=== PATIENT | female | born 1945 | race Caucasian/White ===

== ENCOUNTER 2020-03-18 10:19 | Inpatient (IN) ==
[2020-03-18] MEDS ORDERED: IOPAMIDOL 100 ML BOTTLE IV ONE (10:20)
[2020-03-18] MEDS ORDERED: 0.9 % SODIUM CHLORIDE 1,000 ML IV ONE (10:45)
[2020-03-18] MEDS ORDERED: PANTOPRAZOLE 40 MG VIAL IV ONE (10:45)
--- NOTE | 2020-03-18 10:53 | Emergency Department Note ---
GI Bleed HPI General Chief complaint: Rectal Bleed Stated complaint: abdominal pain bloody diarrhea Time Seen by Provider: 03/18/20 10:24 Source: patient Mode of arrival: ambulatory Limitations: no limitations History of Present Illness HPI Narrative: Narrative: 74-year-old female patient presents emergency departme nt chief complaint of abdominal pain, bloating, and rectal bleeding. Patient mentions she is lactose intolerant and went to [employer] and grabbed a drink. This drink did have some cream in it. Soon afterward she developed bloating, later that evening she developed profuse diarrhea. She began to pass what appeared to be blood around 9 PM last night. She had several episodes of bloody diarrhea up until this morning. She mentions that the abdominal pain initially was a sharp, stabbing pain starting in the epigastric area that extended downward. This is now decreased to mild cramping to lower quadrants. ROS: Denies systemic illness, fever, sweats, chills. Denies headaches, tinnitus, or vision changes. Denies runny nose, sinus congestion, or cough. Denies shortness of breath. Denies retrosternal chest pain or palpitations. Denies nausea or vomiting. Denies dysuria, hematuria, urinary frequency, or urinary urgency. Denies generalized or focal weakness. Related Data Home Medications Medication Instructions Recorded Confirmed cholecalciferol (vitamin D3) 25 25 mcg PO QDAY 10/30/19 03/18/20 mcg (1,000 unit) capsule Previous Rx's Medication Instructions Recorded levothyroxine 100 mcg tablet 100 mcg PO QDAY #30 tab 01/15/20 clorazepate dipotassium 7.5 mg See Rx Instructions .ROUTE 02/10/20 tablet .COMPLEX #60 unknown measurement unit code: tablet lisinopril 10 mg tablet See Rx Instructions .ROUTE 02/23/20 .COMPLEX #30 tablet [employer] Contour Medicare/Aid See Rx Instructions .ROUTE 03/08/20 .COMPLEX #50 each Allergies Allergy/AdvReac Type Severity Reaction Status Date / Time metformin Allergy Mild Rash Verified 03/18/20 15:45 cephalexin [From Keflex] Allergy Unknown Unknown Verified 03/09/20 11:09 Agvdthy-Ipb-Odr Reductase AdvReac Intermediate muscle Verified 03/18/20 15:45 Inhibitor aches Amoxicillin [From Augmentin] AdvReac Mild Anxiety Verified 03/18/20 15:45 clavulanic acid AdvReac Mild Anxiety Verified 03/18/20 15:45 [From Augmentin] levofloxacin [From Levaquin] AdvReac Mild dizzy, Verified 03/18/20 15:45 anxious metronidazole AdvReac Mild duenas, Verified 03/18/20 15:45 burning, throat pain Review of Systems ROS ROS Narrative: Narrative: All systems ED: reviewed and negative except as stated. [facility] Narrative Patient History Narrative: Narrative: Medical/Surgical/Family History All Active Problems (Updated 03/18/20 @ 14:19 by Hayden Pedersen PA-C) Acute lower gastrointestinal bleeding (Acute) Abdominal pain (Acute) Fatigue (Acute) Actinic keratosis (Acute) Hair thinning (Acute) Abnormal stool test (Acute ~03/2019) Chronic bronchitis (Chronic) Degenerative joint disease (Chronic) History of tobacco use (Chronic) Anxiety disorder (Chronic) Chronic pain (Chronic) Radiculopathy of cervical region (Chronic) Myofascial pain (Chronic) Right shoulder pain (Chronic) Hx of bone density study (Chronic 03/12/18) Encounter for Papanicolaou smear for cervical cancer screening (Chronic 01/30/12) Herniated cervical disc (Chronic) Neck pain (Chronic) Diabetes mellitus type 2, diet-controlled (Chronic ~01/2010) History of lump of right breast (Chronic) Hypothyroidism (Chronic) Hyperlipidemia (Chronic) Tendinitis of right shoulder (Chronic) Anxiety (Chronic) Hypertension (Chronic) Back pain, lumbosacral (Chronic) Eczema (Chronic) Allergic rhinitis (Chronic) Pain, joint, shoulder, left (Chronic) Muscle spasms of neck (Chronic) Carpal tunnel syndrome of right wrist (Chronic) DDD (degenerative disc disease), cervical (Chronic) Spinal stenosis, cervical region (Chronic) Coronary arteriosclerosis (Chronic) Hx of smoking (Chronic) Atrophic vaginitis (Chronic) Sinusitis, acute (Chronic) Dizziness (Chronic) Headache (Chronic) Atherosclerosis of both carotid arteries (Chronic) Bronchitis (Chronic) Medical History Actinic keratosis (Acute) Allergic rhinitis (Chronic) Anxiety (Chronic) Anxiety disorder (Chronic) Atherosclerosis of both carotid arteries (Chronic) Atrophic vaginitis (Chronic) Back pain, lumbosacral (Chronic) Bronchitis (Chronic) Carpal tunnel syndrome of right wrist (Chronic) Chronic bronchitis (Chronic) Chronic pain (Chronic) Coronary arteriosclerosis (Chronic) DDD (degenerative disc disease), cervical (Chronic) Degenerative joint disease (Chronic) Diabetes mellitus type 2, diet-controlled (Chronic ~01/2010) Dizziness (Chronic) Eczema (Chronic) Encounter for Papanicolaou smear for cervical cancer screening (Chronic 01/30/12) Neg, vaginal Fatigue (Acute) Hair thinning (Acute) Headache (Chronic) Herniated cervical disc (Chronic) History of lump of right breast (Chronic) at age 19 History of tobacco use (Chronic) Hx of bone density study (Chronic 03/12/18) [facility]- normal Hx of smoking (Chronic) Hyperlipidemia (Chronic) Hypertension (Chronic) Hypothyroidism (Chronic) Muscle spasms of neck (Chronic) Myofascial pain (Chronic) Neck pain (Chronic) Pain, joint, shoulder, left (Chronic) Radiculopathy of cervical region (Chronic) Right shoulder pain (Chronic) Sinusitis, acute (Chronic) Spinal stenosis, cervical region (Chronic) Tendinitis of right shoulder (Chronic) Type 2 diabetes mellitus (Inactive) Surgical History History of cataract surgery (Chronic ~2017) History of hysterectomy (Chronic) at age 26 for bleeding, has ovaries History of surgery (Chronic) KATIE #2 w/cath, w/sed 06/02/2019 Major Bursa Inj. Rt. Shoulder w/sed 06/02/2019 KATIE #1 w/cath, w/sed 05/12/2019 KATIE #2 w/cath, w/sed 04/11/2017 Trigger Point injections w/see 04/11/2017 Trigger Point Injection 1-2 w/sed 03/06/17 KATIE #1 w/cath, w/sed 03/06/17 Hx of colonoscopy (Chronic 04/06/15) Dr Esposito; devin polyp, diverticulosis, repeat 7 years Family History Family/Other Pancreatic cancer Aunt unknown if maternal or paternal Sister Pancreatic cancer at age 54 Father Brain cancer at age 70 Brother Cancer at age 45 Family/Other Ovarian cancer unknown specific family member and if maternal or paternal Social History Smoking Status: Former smoker Substance Use: does not use Exam Narrative Narrative: Narrative: General Limitations: no limitations General appearance: Present other (Well-developed, well-nourished, 74-year-old female patient laying semirecumbent on the emergency room gurney very anxious but in no acute respiratory distress. She is afebrile, mildly tachycardic with a heart rate of 105, other vital signs are normal.) Head Head: Present normocephalic Eye Eye: Present normal appearance, PERRL and EOMI; Absent scleral icterus and conjunctival injection ENT ENT: Present normal oropharynx and mucous membranes moist Neck Neck: Present trachea midline; Absent lymphadenopathy and thyromegaly Chest Chest: Present symmetric chest wall rise Respiratory Respiratory: Present normal lung sounds bilaterally; Absent respiratory distr ess, wheezes, stridor, accessory muscle use and prolonged expiratory phase Cardiovascular Cardiovascular: Present regular rate and normal rhythm; Absent systolic murmur and diastolic murmur Adbominal Abdominal: Present soft, tenderness and normal bowel sounds; Absent distention, guarding, rebound, rigidity, organomegaly and mass Expanded Abdominal Abdominal Tenderness: Present RLQ, LLQ and mild Rectal Rectal: Present normal inspection, normal rectal tone and heme (+) stool; Absent black stool, bloody stool, fecal impaction, hemorrhoids, mass and tenderness Extremities Extremities: Present normal inspection, full ROM and normal capillary refill; Absent pedal edema Back Back: Present normal inspection and full ROM Neurological Neurological: Present alert and oriented X3 Psychiatric Psychiatric: Present normal affect and anxious Skin Skin: Present warm (WNL), dry and normal color Course Course Course Narrative: The differential diagnosis of lower gastrointestinal bleeding in the adult patient includes the following conditions: Diverticulosis, hemo rrhoids, angiodysplasia, ischemia, infections, IBS, ulceration, bowel carcinoma, or polyps. Patient has known history of lactose intolerance and drink something with cream in it. This set off her cascade of symptoms. She does have guaiac positive stool on exam today. I am going to order some screening laboratory studies. I am also going to get an abdominal/pelvic CT scan with contrast. Patient was given Protonix 80 mg IVP. Patient was also given normal saline 1000 mL bolus. Reevaluation(s) Reevaluation #1: A review the patient's diagnostics show the following: CBC WBC 12.7, all others normal limits. Lactic acid 2.3. CMP pending. Contrast- enhanced CT scan of the abdomen/pelvis shows marked concentric wall thickening of the entire descending and proximal sigmoid colon with inflammation of the pericolonic fat infiltrative colonic pathology differential diagnosis includes ischemic colitis versus infectious colitis versus inflammatory bowel disease particular ulcerative colitis. Upon reevaluation patient is resting comfortably on the emergency room [facility]. After reviewing all the data I reached out to on- call GI specialist (Dr. Arvizu) discussed the case with him. At this time Dr. Arvizu requested that the patient be given preparation for colonoscopy later on this evening. He request that she begin drinking GoLYTELY now. He is wanting the hospitalist to admit the patient here to our facility. He would then consult and is the specialist. With this in mind I reached out to our hospitalist (Dr. De Anda) to discuss case with him. Time: 13:59 Reevaluation #2: At this time the hospital says he is willing to admit the allegra ent here to our facility. The patient was started on the bowel regimen as requested. At this time all further treatment decisions, modalities, and ultimate patient disposition be carried out by the hospitalist with the GI specialist in consultation. Vital Signs Vital signs: Vital Signs Temperature 97.3 F 03/18/20 10:22 Pulse Rate 105 H 03/18/20 10:22 Respiratory Rate 18 03/18/20 10:22 Blood Pressure 152/80 03/18/20 10:22 Pulse Oximetry (%) 97 03/18/20 10:22 Temperature 97.3 F 03/18/20 10:22 Pulse Rate 92 H 03/18/20 15:27 Respiratory Rate 18 03/18/20 10:22 Blood Pressure 166/90 03/18/20 15:31 Pulse Oximetry (%) 96 03/18/20 15:27 [facility] MDM Narrative Medical decision making narrative: Narrative: Lab Data Lab results reviewed: Yes I reviewed the patient's lab results. Result diagrams: 03/18/20 10:56 03/18/20 10:56 Labs: Lab Results 03/18/20 03/18/20 03/18/20 Range/Units 10:56 10:56 10:56 WBC 12.7 H (4.5-11.0) K/mcL RBC 4.21 (4.00-5.20) M/mcL Hgb 13.4 (12.0-15.0) g/dL Hct 40.6 (36.0-48.0) % MCV 96.4 (80.0-100.0) fL MCH 31.8 (26.0-34.0) pg MCHC 33.0 (31.0-36.0) g/dL RDW 13.2 (11.5-14.5) % Plt Count 319 (140-440) K/mcL MPV 10.2 (7.4-10.4) fL Neut % (Auto) 77.6 (38.0-78.0) % Lymph % (Auto) 13.2 L (15.0-49.0) % Keith % (Auto) 7.0 (1.0-12.0) % Eos % (Auto) 1.6 (0.0-7.0) % Baso % (Auto) 0.6 (0.0-2.0) % Lymph # (Auto) 1.67 (1.50-4.80) K/mcL Keith # (Auto) 0.89 (0.10-0.90) K/mcL Eos # (Auto) 0.20 (0.00-0.70) K/mcL Baso # (Auto) 0.07 (0.00-0.20) K/mcL Absolute Neutrophils 9.83 H (1.80-8.00) K/mcL VBG Lactic Acid 2.3 H (0.5-2.0) mmol/L Sodium 134 (133-145) mmol/L Potassium 3.8 (3.3-5.1) mmol/L Chloride 100 (96-108) mmol/L Carbon Dioxide 21 L (22-30) mmol/L Anion Gap 13.0 (8.0-16.0) BUN 20 (8-23) mg/dL Creatinine 0.8 (0.6-1.1) mg/dL POC Creatinine 0.7 (0.6-1.2) mg/dL GFR Calculation 71 Glucose 132 H (70-105) mg/dL Calcium 9.1 (8.6-10.4) mg/dL Total Bilirubin 0.5 (0.1-1.0) mg/dL AST 21 (<32) U/L ALT 22 (<40) U/L Alkaline Phosphatase 98 (39-117) U/L Total Protein 7.5 (5.9-8.4) gm/dL Albumin 4.0 (3.2-5.2) gm/dL Globulin 3.5 (2.2-3.7) gm/dL Albumin/Globulin Ratio 1.1 (1.0-2.3) Radiology Data Radiology results reviewed: Yes I reviewed the patient's radiology results. Radiology results narrative: Ordering Physician: Hayden Pedersen PA-C Date of Service: 03/18/20 Procedure(s): CT abdomen pelvis w con Accession Number(s): [id number] CLINICAL INFORMATION: Abdominal pain and bloating rectal bleeding COMPARISON: None. TECHNIQUE: Following enteric contrast, 80 cc of Isovue-370 were injected intravenously, and 20 and 60 seconds later, 0.625 mm helical slices were obtained from the mid heart through the subtrochanteric regions. Following reconstruction, 2.5 mm sagittal, coronal and axial reformatted images were processed and reviewed at bone, lung and soft tissue windows. Five minutes later, 0.625 mm helical slices were obtained from the mid heart through the kidneys and viewed at soft tissue windows.The exam was performed using radiation dose optimization techniques including, but not limited to, automated exposure control, adjustment of the mA and/or kV according to patient size and use of iterative reconstruction technique. FINDINGS: Lung bases show only minimal scarring and/or atelectasis. There are no effusions. The heart is mildly enlarged. Extremely heavy plaque within the LAD coronary artery is suspicious for subocclusive stenosis. There is also heavy calcific plaque in the right and circumflex coronary arteries . Abdominal images show minimal fatty change within the liver, but no focal hepatic lesions. There is a solitary 4 mm stone the gallbladder. Gallbladder and bile ducts are, otherwise, normal: CBD is 5 mm. There is a 8 cm simple cyst inferior pole the left kidney. No other renal abnormality. Both adrenal glands, spleen pancreas and aorta, including aortic branches, are normal in size configuration and attenuation without focal lesion. There is no free air, free fluid no adenopathy Pelvic images show hysterectomy and oophorectomy changes urinary bladder is normal. There is marked concentric wall thickening of the entire descending and proximal sigmoid colon with congestion of the adjacent mesenteric vasculature and appendix. There is also mild inflammation in the pericolonic fat. The remainder of the colon is unremarkable. The appendix is surgically absent. The small bowel and stomach are normal. Bone windows show no osseous abnormality IMPRESSION: Marked concentric wall thickening the entire descending and proximal sigmoid colon with inflammation in the pericolonic fat. Infiltrative colonic pathology differential diagnosis includes ischemic colitis, infectious colitis and inflammatory bowel disease particularly ulcerative colitis. Suggest GI referral for colonoscopy. Subocclusive stenosis of the left anterior descending coronary artery. Suggest referral to cardiology for stress testing. Small hiatal hernia 8 cm simple cyst inferior pole left kidney Cholelithiasis - solitary 4 mm stone the gallbladder Interpreted and Authenticated by: Jefferson Dove 03/18/20 Discharge Plan Patient/Caregiver Discharge Instructions Pt seen by TRUCK SUPERVISOR/PA only: Yes Clinical Impression: Acute lower gastrointestinal bleeding, Anxiety Abdominal pain Qualifiers: Abdominal location: lower abdomen, unspecified Qualified Code(s): R10.30 - Lower abdominal pain, unspecified Patient Disposition: Xfer As Inpt ([facility]) Condition: Good Discharge Date/Time: 03/18/20 15:38
[2020-03-18 11:06] LABS: POC Creatinine 0.7 mg/dL (0.6-1.2)
[2020-03-18 11:52] LABS: Basophils # (Auto) 0.07 K/mcL (0.00-0.20); Basophils % (Auto) 0.6 % (0.0-2.0); Eosinophils % (Auto) 1.6 % (0.0-7.0); Hematocrit 40.6 % (36.0-48.0); Hemoglobin 13.4 g/dL (12.0-15.0); Lymphocytes # (Auto) 1.67 K/mcL (1.50-4.80); Lymphocytes % (Auto) 13.2 % (15.0-49.0); Mean Cell Volume 96.4 fL (80.0-100.0); Mean Platelet Volume 10.2 fL (7.4-10.4); Monocytes # (Auto) 0.89 K/mcL (0.10-0.90); Neutrophils % (Auto) 77.6 % (38.0-78.0); Platelet Count 319 K/mcL (140-440); RBC 4.21 M/mcL (4.00-5.20); Red Cell Distribution Width 13.2 % (11.5-14.5); WBC 12.7 K/mcL (4.5-11.0)
--- NOTE | 2020-03-18 13:08 | Cat Scan Report ---
CLINICAL INFORMATION: Abdominal pain and bloating rectal bleeding COMPARISON: None. TECHNIQUE: Following enteric contrast, 80 cc of Isovue-370 were injected intravenously, and 20 and 60 seconds later, 0.625 mm helical slices were obtained from the mid heart through the subtrochanteric regions. Following reconstruction, 2.5 mm sagittal, coronal and axial reformatted images were processed and reviewed at bone, lung and soft tissue windows. Five minutes later, 0.625 mm helical slices were obtained from the mid heart through the kidneys and viewed at soft tissue windows.The exam was performed using radiation dose optimization techniques including, but not limited to, automated exposure control, adjustment of the mA and/or kV according to patient size and use of iterative reconstruction technique. FINDINGS: Lung bases show only minimal scarring and/or atelectasis. There are no effusions. The heart is mildly enlarged. Extremely heavy plaque within the LAD coronary artery is suspicious for subocclusive stenosis. There is also heavy calcific plaque in the right and circumflex coronary arteries . Abdominal images show minimal fatty change within the liver, but no focal hepatic lesions. There is a solitary 4 mm stone the gallbladder. Gallbladder and bile ducts are, otherwise, normal: CBD is 5 mm. There is a 8 cm simple cyst inferior pole the left kidney. No other renal abnormality. Both adrenal glands, spleen pancreas and aorta, including aortic branches, are normal in size configuration and attenuation without focal lesion. There is no free air, free fluid no adenopathy Pelvic images show hysterectomy and oophorectomy changes urinary bladder is normal. There is marked concentric wall thickening of the entire descending and proximal sigmoid colon with congestion of the adjacent mesenteric vasculature and appendix. There is also mild inflammation in the pericolonic fat. The remainder of the colon is unremarkable. The appendix is surgically absent. The small bowel and stomach are normal. Bone windows show no osseous abnormality IMPRESSION: Marked concentric wall thickening the entire descending and proximal sigmoid colon with inflammation in the pericolonic fat. Infiltrative colonic pathology differential diagnosis includes ischemic colitis, infectious colitis and inflammatory bowel disease particularly ulcerative colitis. Suggest GI referral for colonoscopy. Subocclusive stenosis of the left anterior descending coronary artery. Suggest referral to cardiology for stress testing. Small hiatal hernia 8 cm simple cyst inferior pole left kidney Cholelithiasis - solitary 4 mm stone the gallbladder Interpreted and Authenticated by: Jefferson Dove 03/18/20
[2020-03-18 13:33] LABS: ALT/SGPT 22 U/L (<40); AST/SGOT 21 U/L (<32); Albumin/Globulin Ratio 1.1 (1.0-2.3); Alkaline Phosphatase 98 U/L (39-117); Bilirubin,Total 0.5 mg/dL (0.1-1.0); Blood Urea Nitrogen 20 mg/dL (8-23); Calcium 9.1 mg/dL (8.6-10.4); Carbon Dioxide 21 mmol/L (22-30); Chloride 100 mmol/L (96-108); Globulin 3.5 gm/dL (2.2-3.7); Glomerular Filtration Rate 71; Glucose 132 mg/dL (70-105)
[2020-03-18] MEDS ORDERED: PEG 3350/NA SULF,BICARB,CL/KCL 4,000 ML ORAL.SOL PO ONE (13:59)
[2020-03-18] MEDS ORDERED: LORazepam 2 MG/ML VIAL IV ONE (14:25)
--- NOTE | 2020-03-18 14:31 | Internal Med History&Physical ---
HPI History of Present Illness Patient information: Note initiated : 03/18/20 at 2:25 pm Service Date, if different from initiated Date: [] Patient: Daniella Catalan 74 y/o F admitted on for abdominal pain bloody diarrhea. Chief Complaint: [] History of present illness: Ms. Catalan is a 74 year old F Who presents the ED with bright red blood per rectum. She is doing well until yesterday evening. She does have a history of lactose intolerance. She had a [employer] coffee with her grandson and then had pizza that night. Not too long after she developed severe crampy abdominal pain and then subsequent diarrhea. She was on the toilet constantly from 7-9 with significant mount of diarrhea. After night she noticed a little bit of bright red blood which she felt was her hemorrhoids. However she continued to have bleeding throughout the night thus presented to the ED. Labs and vitals are essentially unremarkable in the ED. CT abdomen pelvis showed concentric wall thickening of the entire descending colon as well as the proximal sigmoid colon. Dr. Arvizu was contacted who request the patient start on GoLYTELY in the ED. He will perform endoscopy likely later today. The diagnosis is ischemic colitis. Patient denies any fevers or chills chest pain shortness of breath dizziness or lightheadedness. Review of Systems: Pertinent positives as above. Denies headache/fever/chills/nausea/vomiting/chest pain/cough/dyspnea/. Remaining 10 point review of system reviewed negative PFSH PFSH All Active Problems (Updated 03/18/20 @ 14:19 by Hayden Pedersen PA-C) Acute lower gastrointestinal bleeding (Acute) Abdominal pain (Acute) Fatigue (Acute) Actinic keratosis (Acute) Hair thinning (Acute) Abnormal stool test (Acute ~03/2019) Chronic bronchitis (Chronic) Degenerative joint disease (Chronic) History of tobacco use (Chronic) Anxiety disorder (Chronic) Chronic pain (Chronic) Radiculopathy of cervical region (Chronic) Myofascial pain (Chronic) Right shoulder pain (Chronic) Hx of bone density study (Chronic 03/12/18) Encounter for Papanicolaou smear for cervical cancer screening (Chronic 01/30/12) Herniated cervical disc (Chronic) Neck pain (Chronic) Diabetes mellitus type 2, diet-controlled (Chronic ~01/2010) History of lump of right breast (Chronic) Hypothyroidism (Chronic) Hyperlipidemia (Chronic) Tendinitis of right shoulder (Chronic) Anxiety (Chronic) Hypertension (Chronic) Back pain, lumbosacral (Chronic) Eczema (Chronic) Allergic rhinitis (Chronic) Pain, joint, shoulder, left (Chronic) Muscle spasms of neck (Chronic) Carpal tunnel syndrome of right wrist (Chronic) DDD (degenerative disc disease), cervical (Chronic) Spinal stenosis, cervical region (Chronic) Coronary arteriosclerosis (Chronic) Hx of smoking (Chronic) Atrophic vaginitis (Chronic) Sinusitis, acute (Chronic) Dizziness (Chronic) Headache (Chronic) Atherosclerosis of both carotid arteries (Chronic) Bronchitis (Chronic) Medical History Actinic keratosis (Acute) Allergic rhinitis (Chronic) Anxiety (Chronic) Anxiety disorder (Chronic) Atherosclerosis of both carotid arteries (Chronic) Atrophic vaginitis (Chronic) Back pain, lumbosacral (Chronic) Bronchitis (Chronic) Carpal tunnel syndrome of right wrist (Chronic) Chronic bronchitis (Chronic) Chronic pain (Chronic) Coronary arteriosclerosis (Chronic) DDD (degenerative disc disease), cervical (Chronic) Degenerative joint disease (Chronic) Diabetes mellitus type 2, diet-controlled (Chronic ~01/2010) Dizziness (Chronic) Eczema (Chronic) Encounter for Papanicolaou smear for cervical cancer screening (Chronic 01/30/12) Neg, vaginal Fatigue (Acute) Hair thinning (Acute) Headache (Chronic) Herniated cervical disc (Chronic) History of lump of right breast (Chronic) at age 19 History of tobacco use (Chronic) Hx of bone density study (Chronic 03/12/18) [facility]- normal Hx of smoking (Chronic) Hyperlipidemia (Chronic) Hypertension (Chronic) Hypothyroidism (Chronic) Muscle spasms of neck (Chronic) Myofascial pain (Chronic) Neck pain (Chronic) Pain, joint, shoulder, left (Chronic) Radiculopathy of cervical region (Chronic) Right shoulder pain (Chronic) Sinusitis, acute (Chronic) Spinal stenosis, cervical region (Chronic) Tendinitis of right shoulder (Chronic) Type 2 diabetes mellitus (Inactive) Surgical History History of cataract surgery (Chronic ~2017) History of hysterectomy (Chronic) at age 26 for bleeding, has ovaries History of surgery (Chronic) KATIE #2 w/cath, w/sed 06/02/2019 Major Bursa Inj. Rt. Shoulder w/sed 06/02/2019 KATIE #1 w/cath, w/sed 05/12/2019 KATIE #2 w/cath, w/sed 04/11/2017 Trigger Point injections w/see 04/11/2017 Trigger Point Injection 1-2 w/sed 03/06/17 KATIE #1 w/cath, w/sed 03/06/17 Hx of colonoscopy (Chronic 04/06/15) Dr Esposito; devin polyp, diverticulosis, repeat 7 years Family History Family/Other Pancreatic cancer Aunt unknown if maternal or paternal Sister Pancreatic cancer at age 54 Father Brain cancer at age 70 Brother Cancer at age 45 Family/Other Ovarian cancer unknown specific family member and if maternal or paternal Social History household members: alone lives independently: Yes marital status: occupational status: retired other: Son, and grandson lives in town smoking status: Former smoker quit date: 10/23/08 substance use type: does not use MEDS/ALLERGIES Home Medications and Allergies Home Medications Medication Instructions Recorded Confirmed Type cholecalciferol (vitamin D3) 25 25 mcg PO QDAY 10/30/19 03/18/20 History mcg (1,000 unit) capsule levothyroxine 100 mcg tablet 100 mcg PO QDAY #30 tab 01/15/20 03/18/20 Rx clorazepate dipotassium 7.5 mg See Rx Instructions .ROUTE 02/10/20 03/18/20 Rx tablet .COMPLEX #60 unknown measurement unit code: tablet lisinopril 10 mg tablet See Rx Instructions .ROUTE 02/23/20 03/18/20 Rx .COMPLEX #30 tablet [facility] Contour Medicare/Aid See Rx Instructions .ROUTE 03/08/20 Rx .COMPLEX #50 each Allergies Allergy/AdvReac Type Severity Reaction Status Date / Time Amoxicillin [From Augmentin] Allergy Unknown Anxiety Verified 03/09/20 11:09 cephalexin [From Keflex] Allergy Unknown Unknown Verified 03/09/20 11:09 clavulanic acid Allergy Unknown Anxiety Verified 03/09/20 11:09 [From Augmentin] levofloxacin [From Levaquin] Allergy Unknown dizzy, Verified 03/09/20 11:09 anxious metformin Allergy Unknown Rash Verified 03/09/20 11:09 metronidazole Allergy Unknown duenas, Verified 03/09/20 11:09 burning, throat pain Atfabpx-Yos-[id number] Reductase Allergy Unknown muscle Verified 03/09/20 11:09 Inhibitor aches EXAM Constitutional Vitals: Temp Pulse Resp BP Pulse Ox 97.3 F 90 18 143/77 98 03/18/20 10:22 03/18/20 14:01 03/18/20 10:22 03/18/20 14:01 03/18/20 14:01 Exam: General: Alert, Awake, No acute Distress Eyes/N/T: EOMI, PERRL, Head/Neck: neck supple, normocephalic atraumatic CV: RRR, No murmurs, normal s1/s2 Pulm: Clear b/l, no wheezing/rhonchi/rales Abd: soft, nontender, +BS x4 Ext: no clubbing/cyanosis/edema Neuro: Alert, no focal deficits, moves all extremities, CN 2-12 grossly intact, symmetrical strength b/l upper/lower, sensations intact b/l upper/lower Skin: warm/dry DATA Data Completed and Pending Labs: Labs from last 24 hours 03/18/20 03/18/20 03/18/20 10:56 10:56 10:56 WBC 12.7 H RBC 4.21 Hgb 13.4 Hct 40.6 MCV 96.4 MCH 31.8 MCHC 33.0 RDW 13.2 Plt Count 319 MPV 10.2 Neut % (Auto) 77.6 Lymph % (Auto) 13.2 L [place] % (Auto) 7.0 Eos % (Auto) 1.6 Baso % (Auto) 0.6 Lymph # (Auto) 1.67 [place] # (Auto) 0.89 Eos # (Auto) 0.20 Baso # (Auto) 0.07 Absolute Neutrophils 9.83 H VBG Lactic Acid 2.3 H Sodium 134 Potassium 3.8 Chloride 100 Carbon Dioxide 21 L Anion Gap 13.0 BUN 20 Creatinine 0.8 POC Creatinine 0.7 GFR Calculation 71 Glucose 132 H Calcium 9.1 Total Bilirubin 0.5 AST 21 ALT 22 Alkaline Phosphatase 98 Total Protein 7.5 Albumin 4.0 Globulin 3.5 Albumin/Globulin Ratio 1.1 A/P Narrative A/P Narrative: A: *Acute lower GI bleed: Likely ischemic colitis -H&H stable at this time -mild lactic acidosis 2/2 above *HTN: *Hypothyroidism: *Anxiety: * P: -IVF's -Dr. Arvizu for endoscopy -Monitor H&H -empiric abx -ppx: SCD full code Time Spent With Patient Time: Total time spent is greater than 50% in coordination of care (as documented) at patient's floor/unit and/or counseling patient:
[2020-03-18] MEDS ORDERED: POTASSIUM CHLORIDE 20 MEQ TABLET PO PRN ×2 (15:43)
[2020-03-18] MEDS ORDERED: ONDANSETRON 4 MG/2 ML VIAL IV PRN (15:43)
[2020-03-18] MEDS ORDERED: hydrOXYzine 25 MG TABLET PO PRN (15:43)
[2020-03-18] MEDS ORDERED: ACETAMINOPHEN 325 MG TABLET PO PRN (15:43)
[2020-03-18] MEDS ORDERED: MAGNESIUM SULFATE 2 GM/50 ML BAG IV PRN (15:43)
[2020-03-18] MEDS ORDERED: POTASSIUM CHLORIDE 40 MEQ in DEXTROSE 5% IN WATER 500 ML IV PRN (15:43)
[2020-03-18] MEDS: 0.9 % SODIUM CHLORIDE 1,000 ML IV SCH (15:52)
[2020-03-18] MEDS: PIPERACILLIN SODIUM/TAZOBACTAM 3.375 GM in DEXTROSE 5% IN WATER 50 ML IV SCH ×2 (16:36→23:34)
--- NOTE | 2020-03-18 17:06 | Internal Medicine Consult Note ---
HPI Data of Consult Primary Care Provider: RIVKA Cotton Consult Narrative Chief complaint: Hematochezia, abnormal CT History of present illness: 74 year old diabetic presented to hospital after developing diarrhea, followed by bloody diarrhea. Last evening, she ate [employer]bucks and a pizza with her grandson. One hour later, she developed abdominal distention with diarrhea at 6:30PM. Around 9:30PM, she had bloody diarrhea with clots and fecal incontinence. She then presented to ER where CT was undertaken and showed thickening of the descending colon. She denies any vomiting, nausea or fever. Her grandson did not become ill. She has not been on antibiotics in the last 6 months. She had chills initially but these resolved. She has seen traces of blood throughout the day while prepping for colonoscopy today, but there is none in her commode at the time of this evaluation. Last colonoscopy 04/2015 reportedly revealed a small polyp. cc:: CC: Piyush De Anda Constitutional Constitutional: Present as per HPI and chills; Absent fever(s) Gastrointestinal Gastrointestinal: Present as per HPI, abdominal pain, change in bowel habits, diarrhea and hematochezia Psychiatric Psychiatric: Present anxiety PFSH PFSH All Active Problems Acute lower gastrointestinal bleeding (Acute) Abdominal pain (Acute) Fatigue (Acute) Actinic keratosis (Acute) Hair thinning (Acute) Abnormal stool test (Acute ~03/2019) Chronic bronchitis (Chronic) Degenerative joint disease (Chronic) History of tobacco use (Chronic) Anxiety disorder (Chronic) Chronic pain (Chronic) Radiculopathy of cervical region (Chronic) Myofascial pain (Chronic) Right shoulder pain (Chronic) Hx of bone density study (Chronic 03/12/18) Encounter for Papanicolaou smear for cervical cancer screening (Chronic 01/30/12) Herniated cervical disc (Chronic) Neck pain (Chronic) Diabetes mellitus type 2, diet-controlled (Chronic ~01/2010) History of lump of right breast (Chronic) Hypothyroidism (Chronic) Hyperlipidemia (Chronic) Tendinitis of right shoulder (Chronic) Anxiety (Chronic) Hypertension (Chronic) Back pain, lumbosacral (Chronic) Eczema (Chronic) Allergic rhinitis (Chronic) Pain, joint, shoulder, left (Chronic) Muscle spasms of neck (Chronic) Carpal tunnel syndrome of right wrist (Chronic) DDD (degenerative disc disease), cervical (Chronic) Spinal stenosis, cervical region (Chronic) Coronary arteriosclerosis (Chronic) Hx of smoking (Chronic) Atrophic vaginitis (Chronic) Sinusitis, acute (Chronic) Dizziness (Chronic) Headache (Chronic) Atherosclerosis of both carotid arteries (Chronic) Bronchitis (Chronic) Medical History Actinic keratosis (Acute) Allergic rhinitis (Chronic) Anxiety (Chronic) Anxiety disorder (Chronic) Atherosclerosis of both carotid arteries (Chronic) Atrophic vaginitis (Chronic) Back pain, lumbosacral (Chronic) Bronchitis (Chronic) Carpal tunnel syndrome of right wrist (Chronic) Chronic bronchitis (Chronic) Chronic pain (Chronic) Coronary arteriosclerosis (Chronic) DDD (degenerative disc disease), cervical (Chronic) Degenerative joint disease (Chronic) Diabetes mellitus type 2, diet-controlled (Chronic ~01/2010) Dizziness (Chronic) Eczema (Chronic) Encounter for Papanicolaou smear for cervical cancer screening (Chronic 01/30/12) Neg, vaginal Fatigue (Acute) Hair thinning (Acute) Headache (Chronic) Herniated cervical disc (Chronic) History of lump of right breast (Chronic) at age 19 History of tobacco use (Chronic) Hx of bone density study (Chronic 03/12/18) [facility]- normal Hx of smoking (Chronic) Hyperlipidemia (Chronic) Hypertension (Chronic) Hypothyroidism (Chronic) Muscle spasms of neck (Chronic) Myofascial pain (Chronic) Neck pain (Chronic) Pain, joint, shoulder, left (Chronic) Radiculopathy of cervical region (Chronic) Right shoulder pain (Chronic) Sinusitis, acute (Chronic) Spinal stenosis, cervical region (Chronic) Tendinitis of right shoulder (Chronic) Type 2 diabetes mellitus (Inactive) Surgical History History of cataract surgery (Chronic ~2017) History of hysterectomy (Chronic) at age 26 for bleeding, has ovaries History of surgery (Chronic) KATIE #2 w/cath, w/sed 06/02/2019 Major Bursa Inj. Rt. Shoulder w/sed 06/02/2019 KATIE #1 w/cath, w/sed 05/12/2019 KATIE #2 w/cath, w/sed 04/11/2017 Trigger Point injections w/see 04/11/2017 Trigger Point Injection 1-2 w/sed 03/06/17 KATIE #1 w/cath, w/sed 03/06/17 Hx of colonoscopy (Chronic 04/06/15) Dr Esposito; shahbazond polyp, diverticulosis, repeat 7 years Family History Family/Other Pancreatic cancer Aunt unknown if maternal or paternal Sister Pancreatic cancer at age 54 Father Brain cancer at age 70 Brother Cancer at age 45 Family/Other Ovarian cancer unknown specific family member and if maternal or paternal Social History household members: alone lives independently: Yes marital status: occupational status: retired other: Son, and grandson lives in town smoking status: Former smoker quit date: 10/23/08 substance use type: does not use MEDS/ALLERGIES Home Medications and Allergies Home Medications Medication Instructions Recorded Confirmed Type cholecalciferol (vitamin D3) 25 25 mcg PO QDAY 10/30/19 03/18/20 History mcg (1,000 unit) capsule levothyroxine 100 mcg tablet 100 mcg PO QDAY #30 tab 01/15/20 03/18/20 Rx clorazepate dipotassium 7.5 mg See Rx Instructions .ROUTE 02/10/20 03/18/20 Rx tablet .COMPLEX #60 unknown measurement unit code: tablet lisinopril 10 mg tablet See Rx Instructions .ROUTE 02/23/20 03/18/20 Rx .COMPLEX #30 tablet [facility]ensia Contour Medicare/Aid See Rx Instructions .ROUTE 03/08/20 Rx .COMPLEX #50 each Allergies Allergy/AdvReac Type Severity Reaction Status Date / Time metformin Allergy Mild Rash Verified 03/18/20 15:45 cephalexin [From Keflex] Allergy Unknown Unknown Verified 03/09/20 11:09 Ryntexu-Igd-[id number] Reductase AdvReac Intermediate muscle Verified 03/18/20 15:45 Inhibitor aches Amoxicillin [From Augmentin] AdvReac Mild Anxiety Verified 03/18/20 15:45 clavulanic acid AdvReac Mild Anxiety Verified 03/18/20 15:45 [From Augmentin] levofloxacin [From Levaquin] AdvReac Mild dizzy, Verified 03/18/20 15:45 anxious metronidazole AdvReac Mild duenas, Verified 03/18/20 15:45 burning, throat pain EXAM Constitutional Vitals: Temp Pulse Resp BP Pulse Ox 98.6 F 89 16 162/82 98 03/18/20 15:43 03/18/20 15:43 03/18/20 15:43 03/18/20 15:43 03/18/20 15:43 Head Head exam: Present atraumatic, normal inspection and normocephalic Eye Eye exam: Present normal appearance Pupils: Absent unequal ENT ENT exam: Present mucous membranes moist and normal exam Neck Neck exam: Present normal inspection; Absent lymphadenopathy Respiratory Respiratory exam: Present normal respiratory exam and CTAB Cardiovascular Cardiovascular exam: Present normal rate and rhythm and RRR; Absent diastolic murmur, gallop, rubs and systolic murmur GI/Abdominal GI/Abdominal exam: Present soft and hyperactive bowel sounds; Absent guarding, hernia, organomegaly and tenderness Additional comments: loose brown stool in commode without blood Psychiatric Psychiatric exam: Present anxious and normal affect Skin Skin exam: Present dry, normal color and warm; Absent diaphoretic DATA Data Completed and Pending Labs: Labs from last 24 hours 03/18/20 03/18/20 03/18/20 10:56 10:56 10:56 WBC 12.7 H RBC 4.21 Hgb 13.4 Hct 40.6 MCV 96.4 MCH 31.8 MCHC 33.0 RDW 13.2 Plt Count 319 MPV 10.2 Neut % (Auto) 77.6 Lymph % (Auto) 13.2 L [place] % (Auto) 7.0 Eos % (Auto) 1.6 Baso % (Auto) 0.6 Lymph # (Auto) 1.67 [place] # (Auto) 0.89 Eos # (Auto) 0.20 Baso # (Auto) 0.07 Absolute Neutrophils 9.83 H VBG Lactic Acid 2.3 H Sodium 134 Potassium 3.8 Chloride 100 Carbon Dioxide 21 L Anion Gap 13.0 BUN 20 Creatinine 0.8 POC Creatinine 0.7 GFR Calculation 71 Glucose 132 H Calcium 9.1 Total Bilirubin 0.5 AST 21 ALT 22 Alkaline Phosphatase 98 Total Protein 7.5 Albumin 4.0 Globulin 3.5 Albumin/Globulin Ratio 1.1 A/P Assessment and plan (1) Acute lower gastrointestinal bleeding: Assessment and plan: Her history of diarrhea followed by bloody diarrhea, suggests infectious enterocolitis. Ischemic colitis from hypovolemia also on the differential. We will check a stool culture and O&P. We will proceed with c olonoscopy. I reassured the patient she may consume clear liquids while she is taking the prep as she is very concerned about becoming hypoglycemic. Status: Acute Time Spent With Patient Time: Total time spent is greater than 50% in coordination of care (as documented) at patient's floor/unit and/or counseling patient:
[2020-03-18] MEDS: 0.9 % SODIUM CHLORIDE 10 ML SYRINGE IV SCH (20:06)
[2020-03-19] MEDS: 0.9 % SODIUM CHLORIDE 1,000 ML IV SCH (00:20)
[2020-03-19] MEDS: 0.9 % SODIUM CHLORIDE 10 ML SYRINGE IV SCH ×2 (05:58→14:24)
[2020-03-19] MEDS: PIPERACILLIN SODIUM/TAZOBACTAM 3.375 GM in DEXTROSE 5% IN WATER 50 ML IV SCH ×3 (05:59→16:49)
--- NOTE | 2020-03-19 07:07 | Internal Med Progress Note ---
SUBJECTIVE Subjective Patient information: Note initiated : 03/19/20 at 7:05 am Service Date, if different from initiated Date: [] Patient: Daniella Catalan 74 y/o F admitted on 03/18/20 for abdominal pain bloody diarrhea. Chief Complaint: [] Interval history: History of present illness: Ms. Catalan is a 74 year old F Who presents the ED with bright red blood per rectum. She is doing well until yesterday evening. She does have a history of lactose intolerance. She had a [employer] coffee with her grandson and then had pizza that night. Not too long after she developed severe crampy abdominal pain and then subsequent diarrhea. She was on the toilet constantly from 7-9 with significant mount of diarrhea. After night she noticed a little bit of bright red blood which she felt was her hemorrhoids. However she continued to have bleeding throughout the night thus presented to the ED. Labs and vitals are essentially unremarkable in the ED. CT abdomen pelvis showed concentric wall thickening of the entire descending colon as well as the proximal sigmoid colon. Dr. Arvizu was contacted who request the patient start on GoLYTELY in the ED. He will perform endoscopy likely later today. The diagnosis is ischemic colitis. Patient denies any fevers or chills chest pain shortness of breath dizziness or lightheadedness. 03/19 Feeling a little better today. Abdominal cramping improving. Bloating improving. Scheduled for colonoscopy today. Review of Systems: denies headache/fever/chills/nausea/vomiting/chest or abdominal ko n/cough/dyspnea. Otherwise see above. Constitutional Vitals: Vital Signs Temp Pulse Resp BP Pulse Ox 98.4 F 87 15 123/70 96 03/19/20 03:27 03/19/20 03:27 03/19/20 03:27 03/19/20 03:27 03/19/20 03:27 Period Temp Pulse Resp BP Sys/Boswell Pulse Ox Last 24 Hr 97.3 F-100.5 F 85-105 13-18 122-166/70-90 94-100 Intake and Output 03/18/20 03/19/20 03/19/20 21:59 05:59 13:59 Intake Total 1050 2805 Output Total 950 1600 Balance 100 1205 Weight 90.083 kg Intake & Output: Intake & Output 03/18/20 03/19/20 03/19/20 21:59 05:59 13:59 Intake Total 1050 2805 Output Total 950 1600 Balance 100 1205 Weight 90.083 kg Intake: IV 1050 1050 Sodium Chloride 0.9% 1,000 ml @ 1000 1000 125 mls/hr IV .Q8H [facility] Rx#: [id number] Zosyn 3.375 gm In Dextrose 5% 50 50 in Water 50 ml @ 100 mls/hr IV Q6H [facility] Rx#:[id number] Oral 1755 Output: Void Amount 300 800 Urine/Stool Mix 650 Stool 800 Other: Meal Dinner Percent of Meal Consumed 100% Urine Appearance Clear Clear Urine Color Pale Pale Stool Size Large Small Stool Color Brown Brown Blood Tinged Blood Tinged Stool Consistency Liquid Liquid Watery Exam: General: Alert, Awake, No acute Distress Eyes/N/T: EOMI, Head/Neck: neck supple, CV: RRR, No murmurs, Pulm: Clear b/l, no wheezing/rhonchi/rales Abd: soft, nontender, +BS x4 Ext: no clubbing/cyanosis/edema Neuro: Alert, no focal deficits, moves all extremities, Skin: warm/dry OBJ DATA Labs CBC & Chem 7: 03/18/20 10:56 03/18/20 10:56 Labs: Abnormal Lab Results 03/18/20 03/18/20 03/18/20 10:56 10:56 10:56 WBC 12.7 H Lymph % (Auto) 13.2 L Absolute Neutrophils 9.83 H VBG Lactic Acid 2.3 H Carbon Dioxide 21 L Glucose 132 H Meds: Medications Acetaminophen (Tylenol) 650 mg PO Q6HP PRN PRN Reason: PAIN/FEVER > 101 Hydroxyzine HCl (Atarax) 50 mg PO TIDP PRN PRN Reason: Anxiety Potassium Chloride 40 meq/ (Dextrose) 520 mls @ 130 mls/hr IV UD PRN PRN Reason: Potassium < 3 Magnesium Sulfate (Magnesium Sulfate) 2 gm in 50 mls @ 50 mls/hr IV UD PRN PRN Reason: Magnesium </= 1.6 Sodium Chloride (Sodium Chloride 0.9%) 1,000 mls @ 125 mls/hr IV .Q8H [facility] Stop: 03/19/20 07:42 Last Admin: 03/19/20 00:20 Dose: 125 mls/hr Documented by: Piperacillin Sod/Tazobactam (Sod 3.375 gm/ Dextrose) 50 mls @ 100 mls/hr IV Q6H [facility]; Protocol Last Admin: 03/19/20 05:59 Dose: 100 mls/hr Documented by: Levothyroxine Sodium (Synthroid) 100 mcg PO QAMAC MAUDE Lisinopril (Zestril) 10 mg PO DAILY [facility] Ondansetron HCl (Zofran) 4 mg IV Q4HP PRN PRN Reason: Nausea And Vomiting Clorazepate Dipotassium 7.5 Mg Tab 1 dose PO BID MAUDE Last Admin: 03/18/20 20:06 Dose: Not Given Documented by: Potassium Chloride (Kdur) 40 meq PO UD PRN PRN Reason: Potssium is 3-3.5 Potassium Chloride (Kdur) 40 meq PO UD PRN PRN Reason: Potassium < 3 Sodium Chloride (Saline Flush) 10 ml IV Q8 MAUDE Last Admin: 03/19/20 05:58 Dose: Not Given Documented by: Vitamin D (Vitamin D3) 1,000 unit PO DAILY MAUDE A/P Narrative A/P Narrative: A: *Acute lower GI bleed/bloody diarrhea: Likely ischemic colitis vs infectious -H&H stable at this time -mild lactic acidosis 2/2 above *HTN: *Hypothyroidism: *Anxiety: * P: -IVF's -Dr. Arvizu for endoscopy -Monitor H&H -empiric abx -ppx: SCD full code Time Spent With Patient Time: Total time spent is greater than 50% in coordination of care (as documented) at patient's floor/unit and/or counseling patient: QUALITY VTE Deep Vein Thrombosis/Pulmonary Embolism Present on Admission: No
[2020-03-19] MEDS: LEVOTHYROXINE 100 MCG TABLET PO SCH (07:35)
[2020-03-19] MEDS: VITAMIN D3 1,000 UNIT TABLET PO SCH (07:38)
[2020-03-19] MEDS: LISINOPRIL 10 MG TABLET PO SCH (07:39)
[2020-03-19] MEDS ORDERED: KETAMINE HCL 50 MG/ML ML IV PRN (08:43)
[2020-03-19] MEDS ORDERED: MIDAZOLAM 2 MG/2 ML VIAL IV SCH (08:45)
[2020-03-19] MEDS ORDERED: PROPOFOL 200 MG/20 ML VIAL IV SCH (08:45)
[2020-03-19] MEDS: INSULIN LISPRO 1 UNIT/0.01 ML UNIT SQ SCH ×3 (11:07→21:41)
[2020-03-19 11:48] LABS: ALT/SGPT 17 U/L (<40); AST/SGOT 17 U/L (<32); Albumin 3.5 gm/dL (3.2-5.2); Albumin/Globulin Ratio 1.2 (1.0-2.3); Alkaline Phosphatase 94 U/L (39-117); Bilirubin,Direct 0.2 mg/dL (<0.3); Bilirubin,Total 0.7 mg/dL (0.1-1.0); Blood Urea Nitrogen 10 mg/dL (8-23); Calcium 8.3 mg/dL (8.6-10.4); Carbon Dioxide 24 mmol/L (22-30); Chloride 103 mmol/L (96-108); Globulin 2.9 gm/dL (2.2-3.7); Glomerular Filtration Rate 84; Glucose 121 mg/dL (70-105); Lactate Dehydrogenase 206 U/L (135-225); Phosphorous 2.5 mg/dL (2.5-4.5); Triglycerides 79 mg/dL (<150); Uric Acid 4.1 mg/dL (2.5-8.0)
[2020-03-19 12:03] LABS: Basophils # (Auto) 0.06 K/mcL (0.00-0.20); Basophils % (Auto) 0.5 % (0.0-2.0); Eosinophils # (Auto) 0.32 K/mcL (0.00-0.70); Eosinophils % (Auto) 2.9 % (0.0-7.0); Hematocrit 38.6 % (36.0-48.0); Hemoglobin 12.2 g/dL (12.0-15.0); Lymphocytes # (Auto) 1.59 K/mcL (1.50-4.80); Lymphocytes % (Auto) 14.5 % (15.0-49.0); Mean Cell Volume 101.6 fL (80.0-100.0); Mean Corpuscular HGB Conc 31.6 g/dL (31.0-36.0); Monocytes # (Auto) 0.75 K/mcL (0.10-0.90); Monocytes % (Auto) 6.9 % (1.0-12.0); Neutrophils % (Auto) 75.2 % (38.0-78.0); Platelet Count 275 K/mcL (140-440); Red Cell Distribution Width 13.6 % (11.5-14.5); WBC 10.9 K/mcL (4.5-11.0)
--- NOTE | 2020-03-19 12:57 | Discharge Summary ---
Discharge Provider Provider Patient information: Note initiated : 03/19/20 at 12:53 pm Service Date, if different from initiated Date: [] Patient: Daniella Catalan 74 y/o F admitted on 03/18/20 for abdominal pain bloody diarrhea. Chief Complaint: [] Date of admission: 03/18/20 15:38 Discharge date: 03/20/20 Primary care physician: RIVKA Cotton Consults: 03/18/20 14:11 Consult to Physician [CONS] Stat Comment: Consulting Provider: Piyush De Anda Reason For Exam: Physician to Consult Consult to Physician [CONS] Stat Comment: Consulting Provider: Chapin Thurston Reason For Exam: Physician to Consult Discharge Meds Discharge Medications Home Medications cholecalciferol (vitamin D3) 25 mcg (1,000 unit) capsule 25 mcg PO QDAY 10/30/19 [History Confirmed 03/18/20 Last Taken 03/15/20] levothyroxine 100 mcg tablet 100 mcg PO QDAY #30 tab 01/15/20 [Rx Confirmed 03/18/20 Last Taken 03/17/20] clorazepate dipotassium 7.5 mg tablet See Rx Instructions .ROUTE .COMPLEX #60 unknown measurement unit code: tablet 02/10/20 [Rx Confirmed 03/18/20 Last Taken 03/18/20] lisinopril 10 mg tablet See Rx Instructions .ROUTE .COMPLEX #30 tablet 02/23/20 [Rx Confirmed 03/18/20 Last Taken 03/18/20] [employer] Contour Medicare/Aid See Rx Instructions .ROUTE .COMPLEX #50 each 03/08/20 [Rx Confirmed 03/19/20 Last Taken Unknown] COURSE Hospital Course Hospital course: History of present illness: Ms. Catalan is a 74 year old F Who presents the ED with bright red blood per rectum. She is doing well until yesterday evening. She does have a history of lactose intolerance. She had a [employer] coffee with her grandson and then had pizza that night. Not too long after she developed severe crampy abdominal pain and then subsequent diarrhea. She was on the toilet constantly from 7-9 with significant mount of diarrhea. After night she noticed a little bit of bright red blood which she felt was her hemorrhoids. However she continued to have bleeding throughout the night thus presented to the ED. Labs and vitals are essentially unremarkable in the ED. CT abdomen pelvis showed concentric wall thickening of the entire descending colon as well as the proximal sigmoid colon. Dr. Arvizu was contacted who request the patient start on GoLYTELY in the ED. He will perform endoscopy likely later today. The diagnosis is ischemic colitis. Patient denies any fevers or chills chest pain shortness of breath dizziness or lightheadedness. 03/19 Feeling a little better today. Abdominal cramping improving. Bloating im proving. Scheduled for colonoscopy today. 03/20 He needs to feel better. Colonoscopy showing ischemic colitis. Stool thickening up. Able for discharge. A: *Acute lower GI bleed/bloody diarrhea: 2/2 ischemic -H&H stable at this time -mild lactic acidosis 2/2 above *HTN: *Hypothyroidism: *Anxiety: * Discharge diagnosis: Ischemic colitis Secondary discharge diagnosis: Hypertension hypothyroidism anxiety Time Spent with Patient Time attestation: Total time spent providing and/or coordinating discharge services: Time spent: Greater than 30 minutes EXAM Constitutional Vitals: Temp Pulse Resp BP Pulse Ox 98.5 F 76 14 105/66 96 03/19/20 12:00 03/19/20 12:00 03/19/20 12:00 03/19/20 12:00 03/19/20 12:00 Discharge Data Data Completed and Pending Labs on day of discharge: Labs from last 24 hours 03/19/20 03/19/20 03/18/20 05:18 05:18 20:30 WBC 10.9 RBC 3.80 L Hgb 12.2 Hct 38.6 MCV 101.6 H MCH 32.1 MCHC 31.6 RDW 13.6 Plt Count 275 MPV 10.0 Neut % (Auto) 75.2 Lymph % (Auto) 14.5 L [place] % (Auto) 6.9 Eos % (Auto) 2.9 Baso % (Auto) 0.5 Lymph # (Auto) 1.59 [place] # (Auto) 0.75 Eos # (Auto) 0.32 Baso # (Auto) 0.06 Absolute Neutrophils 8.22 H Sodium 138 Potassium 3.9 Chloride 103 Carbon Dioxide 24 Anion Gap 11.0 BUN 10 Creatinine 0.7 GFR Calculation 84 Glucose 121 H Uric Acid 4.1 Calcium 8.3 L Phosphorus 2.5 Magnesium 2.0 Total Bilirubin 0.7 Direct Bilirubin 0.2 GGT 42 H AST 17 ALT 17 Alkaline Phosphatase 94 Lactate Dehydrogenase 206 Total Protein 6.4 Albumin 3.5 Globulin 2.9 Albumin/Globulin Ratio 1.2 Triglycerides 79 O & P Trichrome Stain Pending O & P Concentrate Exam Pending 03/18/20 10:56 WBC RBC Hgb Hct MCV MCH MCHC RDW Plt Count MPV Neut % (Auto) Lymph % (Auto) [place] % (Auto) Eos % (Auto) Baso % (Auto) Lymph # (Auto) [place] # (Auto) Eos # (Auto) Baso # (Auto) Absolute Neutrophils Sodium 134 Potassium 3.8 Chloride 100 Carbon Dioxide 21 L Anion Gap 13.0 BUN 20 Creatinine 0.8 GFR Calculation 71 Glucose 132 H Uric Acid Calcium 9.1 Phosphorus Magnesium Total Bilirubin 0.5 Direct Bilirubin GGT AST 21 ALT 22 Alkaline Phosphatase 98 Lactate Dehydrogenase Total Protein 7.5 Albumin 4.0 Globulin 3.5 Albumin/Globulin Ratio 1.1 Triglycerides O & P Trichrome Stain O & P Concentrate Exam Discharge Plan Patient/Caregiver Discharge Instructions Activity: increase activity as tolerated Diet: Lactose Free Prescriptions: Continued cholecalciferol (vitamin D3) 25 mcg (1,000 unit) capsule 25 mcg PO QDAY RF: 0 levothyroxine 100 mcg tablet 100 mcg PO QDAY Qty: 30 RF: 2 clorazepate dipotassium 7.5 mg tablet See Rx Instructions .ROUTE .COMPLEX Qty: 60 RF: 1 lisinopril 10 mg tablet See Rx Instructions .ROUTE .COMPLEX Qty: 30 RF: 3 [employer] Contour Medicare/Aid See Rx Instructions .ROUTE .COMPLEX Qty: 50 RF: 3 Follow Up Plan Follow up with: Ata Kingsley ARNP [Primary Care Provider] - Chapin Thurston MD [Physician] - Patient Disposition: Home, Self-Care Prognosis: Good Overall status at discharge: patient is progressing back to baseline Discharge Orders: Discharge Order (Routine); Ordered 03/20/20 Ordered By: Piyush De Anda [facility] VTE Deep Vein Thrombosis/Pulmonary Embolism Present on Admission: No
[2020-03-20] MEDS: PIPERACILLIN SODIUM/TAZOBACTAM 3.375 GM in DEXTROSE 5% IN WATER 50 ML IV SCH ×2 (00:04→06:03)
[2020-03-20] MEDS: 0.9 % SODIUM CHLORIDE 10 ML SYRINGE IV SCH ×2 (00:04→06:03)
[2020-03-20] MEDS: VITAMIN D3 1,000 UNIT TABLET PO SCH ×2 (07:42→07:46)
[2020-03-20] MEDS: LEVOTHYROXINE 100 MCG TABLET PO SCH (07:42)
[2020-03-20] MEDS: LISINOPRIL 10 MG TABLET PO SCH ×2 (07:42→07:46)
[2020-03-20] MEDS: INSULIN LISPRO 1 UNIT/0.01 ML UNIT SQ SCH (07:44)
--- NOTE | 2020-03-22 08:41 | Colonoscopy Procedure Note ---
Colonoscopy Procedure Notes Procedure Information Patient information: Note initiated : 03/22/20 at 8:39 am Service Date: 03/19/20 Patient: Daniella Catalan 74 y/o F admitted on 03/18/20 for abdominal pain bloody diarrhea. Pre-op diagnosis general: Colitis. Post-op diagnosis general: Ischemic colitis. Colonic polyps. Procedure: Colonoscopy with Polypectomy Snare Procedure narrative: The procedure, alternatives and risks were discussed with the patient and the patient's questions were answered. With endoscopist administered intravenous sedation, the Olympus colonoscope was introduced into the rectum and advanced to the cecum. Ileocecal valve was identified, intubated, and several centimeters of the terminal ileum were examined. A lipoma was seen in the ascending colon. Ischemic colitis was seen in the descending colon; biopsies were taken. Colonic polyps were seen in the ascending and descending colon and rectum. The proximal polyps were removed with a snare. The distal polyps were removed with biopsy technique. They were retrieved for histological examination. Diverticula appear uncomplicated. Assessment: Ischemic colitis. Colonic polyps.
--- NOTE | 2020-03-22 15:13 | Surgical Pathology Report ---
Histology Microscopic Diagnosis Specimen A- COLON, ASCENDING, POLYPECTOMY: -- MULTIPLE FRAGMENTS OF TUBULAR ADENOMA(S). Clinical History Colitis. Procedural Impression Ischemic colitis; polyps. Gross Description Received in formalin labeled ascending colon polyp, are six de la garza-pink mucosal tissue fragments, ranging in size from 0.1 to 1.1 cm in greatest dimension. The possible margin of the larger fragment is inked black. Totally submitted in one cassette with the largest fragment bisected. Microscopic Diagnosis Specimen B- COLON, DESCENDING, BIOPSY: -- COLONIC MUCOSAL NECROSIS AND SURFACE NEUTROPHILS CONSISTENT WITH ENDOSCOPIC IMPRESSION OF ISCHEMIC COLITIS. -- NO DYSPLASIA OR MALIGNANCY IDENTIFIED. Gross Description Received in formalin labeled descending colon biopsy, are five de la garza pink mucosal tissue fragments, ranging in size from 0.2 to 0.5 cm in greatest dimension. Totally submitted in one cassette. Microscopic Diagnosis Specimen C- COLON, RECTAL, POLYPECTOMY: -- HYPERPLASTIC POLYP. (EBD:sln) Gross Description Received in formalin labeled rectal polyp, is a 0.3 x 0.1 x 0.1 cm de la garza-pink polypoid tissue fragment. Totally submitted in one cassette. (DMT:adj) Electronically Signed Mague Roberts MD, FCAP Electronically Signed 03/22/2020 3:12 PM
== END 2020-03-20 12:43 | disposition home or self-care (01) | DRG 395 ==
LOC: ED 10:19 → MEDSUR 15:38
PROVIDERS: ADMIT Internal Medicine; ATTEND Internal Medicine